=== PATIENT | female | born 1990 | race American Indian/Alaskan Native ===

== ENCOUNTER 2022-01-25 10:53 | Outpatient (CLI) | payer MEDICAID ==
--- NOTE | 2022-01-25 13:03 | XRay Report ---
LEFT KNEE 2 VIEWS INDICATION: PAIN IN LEFT KNEE. COMPARISON: None. IMPRESSION: There is mild anterior soft tissue swelling. Bony structures and joint space are unremar kable. No joint effusion is appreciated. Signer Name: Regulo Rodriguez Jr, MD Signed: 01/25/2022 12:59 PM Workstation Name: [id number]
== END 2022-01-25 10:54 | disposition home or self-care (01) ==
LOC: XRAY 10:53
PROVIDERS: ATTEND Orthopaedic Surgery
DX: M25.562 Pain in left knee (principal); R22.42 Localized swelling, mass and lump, left lower limb